=== PATIENT | female | born 1980 | race Caucasian/White ===

== ENCOUNTER 2017-02-21 23:40 | Emergency (ER) | payer OTHER ==
[~2017-02-21] VITALS: Ht 182.9 cm; Wt 88.0 kg
[2017-02-21 23:41] VITALS: BP 174/86; PULSE 114; RESP 18; TEMP 98.7; O2SAT 97
[2017-02-21] MEDS ORDERED: IOHEXOL 350 MG/ML 10 ML VIAL (for RAD DIAG) IVCONTRAST ONE (23:41)
[2017-02-22 01:00] LABS: AUTOMATED NEUTROPHIL # 5.5 TH/MM3 (1.8-7.7); BASOPHIL # 0.1 TH/MM3 (0-0.2); BASOPHIL % 0.8 % (0.0-2.0); EOSINOPHIL # 0.1 TH/MM3 (0-0.4); EOSINOPHIL % 1.7 % (0.0-4.0); HEMATOCRIT 38.8 % (35.0-46.0); HEMO FLAGS DIFF FINAL; LYMPH % 19.5 % (9.0-44.0); LYMPHOCYTE # 1.5 TH/MM3 (1.0-4.8); MEAN CELL VOLUME 86.5 FL (80.0-100.0); MEAN CORPUSCULAR HGB CONC 34.7 % (32.0-36.0); MONO % 6.9 % (0.0-8.0); NEUT % 71.1 % (16.0-70.0); PLATELET COUNT 240 TH/MM3 (150-450); RED BLOOD COUNT 4.49 MIL/MM3 (4.00-5.30); RED CELL DISTRIBUTION WIDTH 14.3 % (11.6-17.2); WHITE BLOOD COUNT 7.8 TH/MM3 (4.0-11.0)
[2017-02-22 01:10] LABS: APTT (PATIENT) 27.5 SEC (24.3-30.1); PROTHROMBIN TIME - PATIENT 11.1 SEC (9.8-11.6)
[2017-02-22 01:14] VITALS: BP 152/104; PULSE 98; RESP 20; O2SAT 95
[2017-02-22 01:31] LABS: BICARBONATE 29.6 MEQ/L (21.0-32.0); POTASSIUM 4.1 MEQ/L (3.5-5.1)
--- NOTE | 2017-02-22 01:40 | PD ---
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 Said every time she stands up, gushes of blood comes out. Does not know how many pads she has used. Pt had laparoscopic hysterectomy in [place] on 02/11/17 and has been doing well. Denies any fever, chest pain, sob, n/v, abdominal pain, focal weakness or numbness. PFSH Past Medical History Anemia: Yes ?: Not Past Surgical History Section: Yes (X4) Hysterectomy: Yes Social History Alcohol Use: Yes (OCC) Tobacco Use: No Substance Use: No Allergies-Medications (Allergen,Severity, Reaction): Coded Allergies: No Known Allergies (Unverified , 02/22/17) Reported Meds & Prescriptions Reported Meds & Active Scripts Active No Active Prescriptions or Reported Medications Review of Systems Except as stated in HPI: all other systems reviewed are Neg Physical Exam Narrative GENERAL: 36yo F in mild distress. SKIN: Focused skin assessment warm/dry. HEAD: Atraumatic. Normocephalic. EYES: Pupils equal and round. No scleral icterus. No injection or drainage. ENT: No nasal bleeding or discharge. Mucous membranes pink and moist. NECK: Trachea midline. No JVD. CARDIOVASCULAR: Regular rate and rhythm. No murmur appreciated. RESPIRATORY: No accessory muscle use. Clear to auscultation. Breath sounds equal bilaterally. GASTROINTESTINAL: Abdomen soft, non-tender, nondistended. No rebound tenderness or guarding. PELVIC: +Large amount of blood in vaginal vault. Evacuated the clots with ring forceps and gauze. After cleaning the blood, can see slight active oozing. MUSCULOSKELETAL: No obvious deformities. No clubbing. No cyanosis. No edema. NEUROLOGICAL: Awake and alert. No obvious cranial nerve deficits. Motor grossly within normal limits. Normal speech. PSYCHIATRIC: Appropriate mood and affect; insight and judgment normal. Data Data Last Documented VS Vital Signs Date Time Temp Pulse Resp B/P (MAP) Pulse Ox O2 Delivery O2 Flow Rate FiO2 02/22/17 06:50 02/22/17 04:04 77 18 98 Room Air 02/21/17 23:41 98.7 Orders Orders Complete Blood Count With Diff (02/22/17 01:30) Basic Metabolic Panel (Bmp) (02/22/17 01:30) Prothrombin Time / Inr (Pt) (02/22/17 01:30) Act Partial Throm Time (Ptt) (02/22/17 01:30) Type And Screen (02/22/17 01:30) Consult Gynecology (02/22/17 ) Ct Abd/Pel W Iv Contrast(Rout) (02/22/17 ) (Hub Use Only)Inp Phy Cons/Ref (02/22/17 ) Iohexol 350 Inj (Omnipaque 350 Inj) (02/21/17 23:41) Ed Discharge Order (02/22/17 06:45) Labs Laboratory Tests Test 02/22/17 01:38 [facility] Medical Decision Making Medical Screen Exam Complete: Yes Emergency Medical Condition: Yes Differential Diagnosis Wound dehiscence vs. friable mucosa vs. hematoma vs. surgical complications Narrative Course 36yo F with recent hysterectomy in [place] here with vaginal bleeding. Pt initially tachycardic at triage but has been normal while on the monitor in the medical bed. Labs reviewed, no leukocytosis. H/H 13.5/38.8. I discussed with OB hospitalist Dr. Marie who came to evaluate the patient. Said the vaginal tuft was intact. Recommends either a CT scan or ultrasound to r/o hematoma. CT a/p completed and showed mild splenomegaly. 2.3cm left ovarian cyst. Pt has been observed in the ED and no symptoms besides mild bleeding. Will have pt follow up with her OBGYN. Return precautions given. Diagnosis Primary Impression: Vaginal bleeding Patient Instructions: General Instructions Departure Forms: Tests/Procedures Additional Instructions: Please follow up with your OBGYN as soon as you can. Return to the ED immediately if bleeding worsens or you have any symptoms. Med/Other Pt SpecificInfo: No Change to Meds Scripts No Active Prescriptions or Reported Meds Disposition: DISCHARGE HOME Condition: Stable Whitney Martínez DO Feb 22, 2017 01:40
[2017-02-22 04:04] VITALS: BP 126/82; PULSE 77; RESP 18; O2SAT 98
--- NOTE | 2017-02-22 06:28 | RADRPT ---
EXAM DATE/TIME: 02/22/2017 06:10 [facility] COMPARISON: No previous studies available for comparison. INDICATIONS : Post hysterectomy on 02/11, heavy vaginal bleeding today. IV CONTRAST: 95 cc Omnipaque 350 (iohexol) IV ORAL CONTRAST: No oral contrast ingested. RADIATION DOSE: 10.50 CTDIvol (mGy) MEDICAL HISTORY : None SURGICAL HISTORY : Hysterectomy. section. ENCOUNTER: Initial ACUITY: 1 day PAIN SCALE: 2/10 LOCATION: Bilateral lower quadrant TECHNIQUE: Volumetric scanning of the abdomen and pelvis was performed. Using automated exposure control and ad justment of the mA and/or kV according to patient size, radiation dose was kept as low as reasonably achievable to obtain optimal diagnostic quality images. DICOM format image data is available electro nically for review and comparison. FINDINGS: LOWER LUNGS: The visualized lower lungs are clear. LIVER: Homogeneous density without lesion. There is no dilation of the biliary tree. No calcified gallston es. SPLEEN: Enlarged measuring 14.3 cm in craniocaudal dimension. No focal mass. PANCREAS: Within normal limits. KIDNEYS: Normal in size and shape. There is no mass, stone or hydronephrosis. ADRENAL GLANDS: Within normal limits. VASCULAR: There is no aortic aneurysm. BOWEL/MESENTERY: No evidence of bowel dilatation. No free air or free fluid. Appendix not identified. ABDOMINAL WALL: Within normal limits. RETROPERITONEUM: There is no lymphadenopathy. BLADDER: No wall thickening or mass. REPRODUCTIVE: 2.3 cm left ovarian cyst. INGUINAL: There is no lymphadenopathy or hernia. MUSCULOSKELETAL: Within normal limits for patient age. CONCLUSION: 1. Mild splenomegaly. 2. 2.3 cm left ovarian cyst. Gopal Wadsworth MD on February 22, 2017 at 6:19 Board Certified Radiologist. This report was verified electronically.
--- NOTE | 2017-02-22 06:28 | PD.CONS ---
HPI Chief Complaint post op vaginal bleeding Date Seen: Feb 22, 2017 Time Seen: 05:42 Travel History International Travel<30 Days: No Contact w/Intl Traveler<30Days: No Known Affected Area: No History of Present Illness HPI Pt is a 36y/o s/p laparascopic hysterectomy by Dr. Mendenhall ([facility]) on 02/11 for fibroids/menorrhagia. She is visiting family in [facility] and states that starting at 9pm last evening, after nothing but walking, she began experiencing vaginal bleeding. She called the clinic and was told to do pad counts and go to the ED if needed. She states that she began soaking through clothes and then pads. In the ED, she had a pelvic which revealed clots and BRB on speculum exam. No bimanual or imaging performed. Pt denies any intercourse, heavy lifting, or excessive activity. She reports some abdominal pain but no vaginal pain. 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 and small fibroid, s/p recent hyst Past Surgical History Narrative Surgical CS x3 ectopic x1 laparoscopic hyst multiple knee surgeries (b/l) Family History Family History: Negative Social History Alcohol Use: No Tobacco Use: No Substance Abuse: No Allergies-Medications (Allergen,Severity, Reaction): Coded Allergies: No Known Allergies (Unverified , 02/22/17) Home Meds No Active Prescriptions or Reported Meds Review of Systems Except as stated in HPI: all other systems reviewed are Neg Physical Exam Vital Signs Date Time Temp Pulse Resp B/P (MAP) Pulse Ox O2 Delivery O2 Flow Rate FiO2 02/22/17 04:04 77 18 126/82 (97) 98 Room Air 02/22/17 01:14 98 20 152/104 (120) 95 Room Air 02/22/17 01:11 18 02/21/17 23:41 98.7 114 18 174/86 (115) 97 Room Air Narrative GENERAL: Well-nourished, well-developed patient. SKIN: Warm and dry. HEAD: Normocephalic and atraumatic. EYES: No scleral icterus. No injection or drainage. ENT: No nasal drainage noted. Mucous membranes pink. Airway patent. NECK: Supple, trachea midline. No JVD. ABDOMEN/GI: Abdomen soft, non-tender, well healing LSC incisions x3 EXTREMITIES: No cyanosis or edema. NEUROLOGICAL: Awake and alert. Motor and sensory grossly within normal limits. PELVIC: cuff palpates intact suture line, +blood on glove, no clots Data Data Vital Signs Reviewed: Yes Orders Orders Complete Blood Count With Diff (02/22/17 01:30) Basic Metabolic Panel (Bmp) (02/22/17 01:30) Prothrombin Time / Inr (Pt) (02/22/17 01:30) Act Partial Throm Time (Ptt) (02/22/17 01:30) Type And Screen (02/22/17 01:30) Consult Gynecology (02/22/17 ) Ct Abd/Pel W Iv Contrast(Rout) (02/22/17 ) (Hub Use Only)Inp Phy Cons/Ref (02/22/17 ) Iohexol 350 Inj (Omnipaque 350 Inj) (02/21/17 23:41) Labs Laboratory Tests Test 02/22/17 01:38 MDM Plan 36y/o who is 2wks postop from LSC hysterectomy presented with vaginal bleeding. -- concern for possible cuff dehiscence abated by exam; cuff intact -- recommend US to r/o vaginal cuff hematoma -- advised on rest for a few days and strict pad counts -- avoid NSAIDs at this time -- f/u as scheduled on Thursday for postop visit Condition: Stable Scripts No Active Prescriptions or Reported Meds Michael Marie MD Feb 22, 2017 06:28
== END 2017-02-22 06:57 | disposition home or self-care (01) ==
LOC: NEPE 23:40
DX: N93.9 Abnormal uterine and vaginal bleeding, unspecified (principal); N99.820 Postprocedural hemorrhage of a genitourinary system organ or structure following a genitourinary system procedure; N83.202 Unspecified ovarian cyst, left side; Z90.710 Acquired absence of both cervix and uterus
CPT/HCPCS: 74177; 80048; 85025; 85610; 85730; 86850; 86900; 86901; 99285; Q9967